=== PATIENT | male | born 1975 ===

== ENCOUNTER 2016-12-22 13:30 | Emergency (ER) | payer MEDICAID ==
[2016-12-22 13:39] VITALS: RESP 16; TEMP 97.3; O2SAT 99
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
[2016-12-22 14:23] VITALS: BP 126/69; PULSE 70
--- NOTE | 2016-12-22 16:12 | RAD ---
PROCEDURE: Cervical Spine Radiographs. HISTORY: Pain. COMPARISON: None. FINDINGS: BONES: Alignment maintained. No fracture. Dens Intact. DISC SPACES: Normal. SOFT TISSUES: Normal. No prevertebral soft tissue swelling. OTHER FINDINGS: None. IMPRESSION: Normal cervical spine radiographs
== END 2016-12-22 14:22 | disposition home or self-care (01) ==
LOC: C.ER 13:30
DX: S13.4XXA Sprain of ligaments of cervical spine, initial encounter (principal); V89.2XXA Person injured in unspecified motor-vehicle accident, traffic, initial encounter